=== PATIENT | female | born 1990 | race Caucasian/White ===

== ENCOUNTER 2016-11-15 12:49 | Emergency (ER) | payer MEDICAID ==
--- NOTE | ~2016-11-15 | ER ---
PATIENT'S NAME: ERICK MOSS [facility] AGE: 26 Y [address] ROOM: [place] [id number] LOCATION: [facility] ADMIT DATE: 11/15/2016 ER/Outpatient Report DISCHARGE DATE: 11/15/2016 FAMILY PHYSICIAN: PHYSICIAN, NO ATTENDING PHYSICIAN: Guera Irene TIME OF ARRIVAL: 1249 hours. TIME SEEN: 1254 hours. IDENTIFICATION: A 26-year-old G2, P1 female at 28 weeks gestation. She is followed by Dr. Teodora Camargo for her OB doctor. She recently moved back from [place]. She has a 6- year-old child who was delivered by forceps delivery per Dr. Kaba. She has had nausea and vomiting in the last 24 hours. No diarrhea. No fever or chills. Baby is active. No vaginal bleeding. No cramping. No leaking fluid. ALLERGIES: NO KNOWN DRUG ALLERGIES. CURRENT MEDICATIONS: 1. vitamins. 2. Sominex. MEDICAL PROBLEMS: Denies. PRIOR SURGERIES: Forceps delivery. REVIEW OF SYSTEMS: All systems reviewed and negative other than what is noted in the HPI. FAMILY HISTORY: No pertinent family history. The patient is adopted. PHYSICAL EXAMINATION: VITAL SIGNS: Weight 74.4 kg. Pulse 89, respirations 20, temp 97.2, blood pressure 102/67, and sats 98% on room air. heart tones 140. GENERAL: A pleasant female in no acute distress. HEENT: Unremarkable. LUNGS: Clear to auscultation. PATIENT'S NAME: ERICK MOSS [facility] AGE: 26 Y [address] ROOM: [place] [id number] LOCATION: [facility] ADMIT DATE: 11/15/2016 ER/Outpatient Report DISCHARGE DATE: 11/15/2016 FAMILY PHYSICIAN: PHYSICIAN, NO ATTENDING PHYSICIAN: Guera Irene HEART: Regular rate and rhythm. ABDOMEN: Bowel sounds present. Soft, nondistended, nontender. : Intrauterine at 28 weeks gestation. EXTREMITIES: No edema, full range of motion. NEURO: No focal deficit. SKIN: [place], warm, and dry. No lesions or rashes noted. LABORATORY DATA: Sodium 139, potassium 3.5, chloride 106, CO2 20, BUN 9, creatinine 0.5, and blood sugar 77. Liver enzymes normal. Albumin is low at 2.9. TSH 0.596. Hemoglobin 10.4, hematocrit 32.4, platelets 260, and white count 9.5 with a normal differential. IMPRESSION AND PLAN: 1. Intrauterine at 28 weeks' gestation. 2. Gastroenteritis. 3. Anemia. 4. Low albumin. 5. Mild hypokalemia. PLAN: The patient received 1 L of IV fluids and Zofran 4 mg IV here with no further episodes of vomiting, she said she felt better now and just tired, clear liquids small amounts at frequent intervals, Zofran 4 mg q.6 h. p.r.n. nausea, dispensed 6 with 0 refills, and follow up with Dr. Camargo tomorrow. Follow up sooner if any problems or concerns. The patient understands and agrees and all questions have been answered. MD CATALINA MOSQUERA/yessy /[id number] d: 11/16/16 0025 t: 11/16/16 1443, OUTPATIENT REPORT
[2016-11-15 13:32] LABS: BASOPHIL % 0.2 %; EOSINOPHIL # 0.2 K/uL (0.0-0.5); HEMATOCRIT 32.4 % (33.0-46.0); HEMOGLOBIN 10.4 g/dL (11.0-15.0); IMMATURE GRANULOCYTE # 0.1 K/uL (0.0-0.3); IMMATURE GRANULOCYTE % 0.6 %; LYMPHOCYTE # 1.3 K/uL (0.8-4.0); LYMPHOCYTE % 13.6 %; MCH 30.1 pg (27.0-34.0); MCHC 32.1 gm/dL (32.0-36.5); MCV 93.9 fl (83.0-98.0); MONOCYTE # 1.1 K/uL (0.0-1.0); MONOCYTE % 11.4 %; NEUTROPHIL # (ANC) 6.8 K/uL (1.8-7.8); NEUTROPHIL % 72.2 %; NRBC % 0 /100WBC (0-0.00); PLATELET COUNT 260 K/uL (150-450); RBC 3.45 M/uL (3.50-5.00); WBC 9.5 K/uL (4.0-11.0)
[2016-11-15 13:52] LABS: ALBUMIN 2.9 gm/dL (3.5-5.0); ALK PHOS 64 IU/L (33-138); ALT 16 IU/L (12-78); ANION GAP 16.5 (10.0-19.0); AST 13 IU/L (10-40); BLOOD UREA NITROGEN 9 mg/dL (6-24); CHLORIDE 106 mMol/L (96-110); CO2 20 mMol/L (22-32); CREATININE 0.5 mg/dL (0.5-1.1); ESTIMATED GFR (MDRD EQUATION) > 60; POTASSIUM 3.5 mMol/L (3.7-5.1); SODIUM 139 mMol/L (135-145); TOTAL BILIRUBIN 0.3 mg/dL (0.0-1.5); TOTAL PROTEIN 6.9 g/dL (6.0-8.4)
== END 2016-11-15 14:56 | disposition disaster alternative care site (69) ==
LOC: GMED 12:49
PROVIDERS: Family Medicine
DX: O99.613 Diseases of the digestive system complicating pregnancy, third trimester (principal); O99.013 Anemia complicating pregnancy, third trimester; O99.283 Endocrine, nutritional and metabolic diseases complicating pregnancy, third trimester; K52.9 Noninfective gastroenteritis and colitis, unspecified; D64.9 Anemia, unspecified; E87.6 Hypokalemia; Z3A.28 28 weeks gestation of pregnancy
CPT/HCPCS: J2405; J7030

== ENCOUNTER → 2017-01-09 | Emergency (ER) | payer MEDICAID | END | disposition disaster alternative care site (69) | LOC: GAMB 12:33 | DX: F48.8 Other specified nonpsychotic mental disorders (principal) ==